=== PATIENT | male | born 1975 | race African-American/Black ===

== ENCOUNTER 2017-12-29 11:24 | Emergency (ER) | payer OTHER ==
[~2017-12-29] VITALS: Ht 180.3 cm; Wt 81.6 kg
[2017-12-29 15:22] VITALS: BP 174/83
[2017-12-29 15:34] LABS: ABSOLUTE BASOPHIL COUNT 0 /CUMM (0.0-0.2); ABSOLUTE EOSINOPHIL COUNT 0.5 /CUMM (0.0-0.7); ABSOLUTE GRANULOCYTE CT 2.6 /CUMM (1.4-6.5); ABSOLUTE LYMPH COUNT 2.5 /CUMM (1.2-3.4); ABSOLUTE MONOCYTE COUNT 0.6 /CUMM (0.10-0.60); BASOPHIL % 0.7 % (0.0-2.0); EOSINOPHIL % 8.2 % (0-5); GRANULOCYTE % 41.6 % (42.2-75.2); HEMATOCRIT 44.5 % (42-52); MEAN CORPUSCULAR HGB 26.9 PG (27.0-31.0); MEAN CORPUSCULAR HGB CONC 32.9 G/DL (33.0-37.0); MEAN CORPUSCULAR VOLUME 81.7 FL (80.0-94.0); MEAN PLATELET VOLUME 8.3 FL (7.4-10.4); PLATELET COUNT 257 /CUMM (130-400); RBC DISTRIBUTION WIDTH 14.1 % (11.5-14.5); RED BLOOD CELL CT 5.45 /CUMM (4.70-6.10); WHITE BLOOD CELL COUNT 6.2 /CUMM (4.8-10.8)
--- NOTE | 2017-12-29 17:18 | CT SCAN REPORT ---
EXAMINATION: CT ABDOMEN AND PELVIS WITHOUT CONTRAST CLINICAL INFORMATION: Bilateral lower back pain radiating to the flanks and groin COMPARISON: None TECHNIQUE: Multidetector volumetric imaging was performed from the superior aspect of the liver through the pubic symphysis. Sagittal and coronal reformatted images were obtained on the technologist's workstation. DLP: 282 mGy-cm FINDINGS: LUNG BASES: The visualized lung bases are unremarkable. LIVER, GALLBLADDER, AND BILIARY TREE: The liver is normal in size, shape, and attenuation. No focal hepatic lesion or biliary ductal dilatation is present. The gallbladder is unremarkable with no evidence of radiopaque gallstones, gallbladder wall thickening, or obvious pericholecystic inflammatory changes. PANCREAS: Unremarkable. SPLEEN: Unremarkable. ADRENAL GLANDS: Unremarkable. KIDNEYS AND URETERS: The kidneys are normal in size, shape, and attenuation. No hydronephrosis, hydroureter, or calculi seen. No perinephric stranding. BLADDER: Unremarkable. GASTROINTESTINAL TRACT: The stomach is unremarkable. The small bowel is normal in caliber. No obstruction. No colonic wall thickening or inflammatory change. Normal appendix. No free air or free fluid. ABDOMINAL WALL: No significant hernia is appreciated. LYMPH NODES: Normal. VASCULAR: Unremarkable. PELVIC VISCERA: The prostate and seminal vesicles are unremarkable. Phleboliths present in the pelvis. OSSEOUS STRUCTURES: No acute or suspicious osseous abnormality. Mild degenerative changes of the lumbar spine with multilevel small endplate osteophytes present. IMPRESSION: No acute findings of the abdomen or pelvis. No hydronephrosis or nephrolithiasis. No inflammatory changes. Mild degenerative changes of the lumbar spine.
--- NOTE | 2017-12-29 17:24 | ED GI/GU/ABDOMINAL COMPLAINT ---
History of Present Illness General Chief Complaint: Low Back Pain/Injury Stated Complaint: LOWER BACK PAIN,RADIATING TO ABDOMINAL/GROIN AREA Source: patient Exam Limitations: no limitations Vital Signs & Intake/Output Vital Signs & Intake/Output Vital Signs Date Time Temp Pulse Resp B/P B/P Pulse O2 O2 Flow FiO2 Mean Ox Delivery Rate 12/29 1522 99.1 68 16 174/83 99 Room Air 12/29 1142 96.2 78 16 98 Room Air Allergies Coded Allergies: No Known Allergies (12/29/17) Reconcile Medications Ibuprofen 800 MG TABLET 1 TAB PO TID PRN PAIN Triage Note: PT TO ED FOR LOW BACK PAIN AND BILATERAL GROIN PAIN WITH INTERMITTENT SHARP PAIN TO R GROIN. PT DENIES FEVERS/HEMATURIA. PT REPORTS "WHITE STRINGS IN URINE SINCE OCTOBER...LONG WHITE STRINGS" PT ALSO REPORTS HE HAS NOT URINATED SINCE WAKING UP THIS AM AT 0800. REPORTS HAVING URGE TO URINATE, BUT CANNOT DO SO. MANUAL BP 172/122 IN TRIAGE, REPORTS 5/10 PAIN. Triage Nurses Notes Reviewed? yes Onset: Gradual Duration: week(s): (2 MONTHS ), changing over time, continues in ED Timing: recent history Quality/Severity: cramping Severity Numbers: 5 Location: BACK Radiation: groin Activities at Onset: none Prior Abdominal Problems: similar symptoms Sexually Active: Yes No Modifying Factors: none Modifying Factors: Worsens With: movement, palpation. HPI: 42-year-old male with no past medical history presents for evaluation of low back pain radiates to the groin and "white strings". In his urine. He states this is going on for several months now intermittently. He HAs been evaluated multiple times and has been treated for STDs without much improvement. He d enies any dysuria frequency or urgency. He does report that he is urinating less than usual. He is sexually active but denies a history of STDs. No abdominal pain. This pain is worse with movement. He has not taken any medicine for the pain. There is no trauma no numbness no tingling no bowel or bladder dysfunction. Past History Travel History Traveled to [place] past 21 day No Medical History Any Pertinent Medical History? see below for history Neurological: NONE EENT: NONE Cardiovascular: hypertension Respiratory: NONE Gastrointestinal: NONE Hepatic: NONE Renal: NONE Musculoskeletal: NONE Psychiatric: NONE Endocrine: NONE Surgical History Surgical History: non-contributory Psychosocial History What is your primary language Tajik Tobacco Use: Current Not Daily Daily Tobacco Use Amount/Type: => 5 Cigarettes daily Family History Hx Contributory? No Review of Systems Review of Systems Constitutional: Reports: no symptoms. EENTM: Reports: no symptoms. Respiratory: Reports: no symptoms. Cardiovascular: Reports: no symptoms. GI: Reports: no symptoms. Genitourinary: Reports: see HPI, discharge. Musculoskeletal: Reports: see HPI, back pain. Skin: Reports: no symptoms. Neurological/Psychological: Reports: no symptoms. Hematologic/Endocrine: Reports: no symptoms. Immunologic/Allergic: Reports: no symptoms. All Other Systems: Reviewed and Negative Physical Exam Physical Exam General Appearance: well developed/nourished, no apparent distress, alert, awake Head: atraumatic, normal appearance Eyes: Bilateral: normal appearance, PERRL, EOMI. Ears, Nose, Throat, Mouth: hearing grossly normal, moist mucous membrane Neck: normal inspection, supple, full range of motion Respiratory: normal breath sounds, chest non-tender, no respiratory distress, lungs clear Cardiovascular: regular rate/rhythm, normal peripheral pulses Peripheral Pulses: 2+ radial (R), 2+ radial (L) Gastrointestinal: soft, non-tender Male Genitals: normal genitalia Back: normal inspection, normal range of motion, LUMBAR PARASPINOUS MUSCLES TENDER TO PALPATION BILATERALLY. nO STEP-OFFS OR DEFORMITIES NO MIDLINE PAIN Extremities: normal range of motion Neurologic/Psych: no motor/sensory deficits, awake, alert, oriented x 3, normal gait Skin: intact, normal color, warm/dry Core Measures ACS in differential dx? No Sepsis Present: No Sepsis Focused Exam Completed? No Progress Differential Diagnosis: AMI, appendicitis, biliary colic, bowel obstruction, cholecystitis, diverticulitis, gastritis, hepatitis, pancreatitis, peptic ulcer, PUD/GERD, pyelonephritis, testicular torsion, ureterolithiasis, urinary retention, UTI/pyelo Plan of Care: Orders Procedure Date/time Status Add-on Test (ER Only) 12/29 1625 Active COMPREHENSIVE METABOLIC PANEL 12/29 1518 Complete CBC WITHOUT DIFFERENTIAL 12/29 1518 Complete CHLAMYDIA-GC DNA PROBE 12/29 1236 Active URINALYSIS 12/29 1147 Complete Current Medications Sig/Bev Start time Last Medication Dose Stop Time Status Admin Azithromycin 1,000 MG ONCE ONE 12/29 1730 AC (Zithromax) 12/29 1730 Ceftriaxone Sodium 250 MG ONCE ONE 12/29 1729 AC (Rocephin) 12/29 1730 Lidocaine 20 ML ONCE ONE 12/29 1729 AC (Lidocaine 1%) 12/29 1730 Laboratory Tests 12/29/17 1524: Anion Gap 12, Estimated GFR > 60, BUN/Creatinine Ratio 9.0, Glucose 111 H, Calcium 9.7, Total Bilirubin 0.7, AST 16 L, ALT 29, Alkaline Phosphatase 70, Total Protein 7.6, Albumin 4.4, Globulin 3.2, Albumin/Globulin Ratio 1.4, CBC w Diff NO MAN DIFF REQ, RBC 5.45, MCV 81.7, MCH 26.9 L, MCHC 32.9 L, RDW 14.1, MPV 8.3, Gran % 41.6 L, Lymphocytes % 39.9, Monocytes % 9.6 H, Eosinophils % 8.2 H, Basophils % 0.7, Absolute Granulocytes 2.6, Absolute Lymphocytes 2.5, Absolute Monocytes 0.6, Absolute Eosinophils 0.5, Absolute Basophils 0 12/29/17 1236: Urine Color YEL, Urine Clarity CLEAR, Urine pH 6.5, Ur Specific [place] 1.025, Urine Protein NEG, Urine Ketones NEG, Urine Nitrite NEG, Urine Bilirubin NEG, Urine Urobilinogen 0.2, Ur Leukocyte Esterase NEG, Ur Microscopic EXAM NOT REQUIRED, Urine Hemoglobin NEG, Urine Glucose NEG Microbiology 12/30 1235 URINE ROUT: GC DNA Probe - RECD 12/30 1235 URINE ROUT: Chlamydia DNA Probe ([facility]) - RECD Patient seen and evaluated. He is having low back pain and possibly penile discharge. This been going on for several months. There is no trauma. A CT scan of the abdomen and pelvis was obtained along with basic blood work and there is no acute findings. Patient will also be treated for gonorrhea and chlamydia. Patient received Toradol is feeling much better. He was also treated for chlamydia and gonorrhea. Clear. Discussed STD precautions. Use condoms. Tylenol ibuprofen as needed. Follow-up with urology and primary care doctor. Discussed return precautions patient agrees the plan Diagnostic Imaging: Viewed by Me: CT Scan. Discussed w/RAD: CT Scan. Radiology Impression: PATIENT: BRAYAN CANDELARIO PRESENT AGE: 42 PATIENT ACCOUNT NO: [id number] : 75 LOCATION: [facility] ORDERING PHYSICIAN: Randall DOHERTY SERVICE DATE: 12/29/17 EXAM TYPE: CAT - CT ABD & PELVIS W/O IV CONTRAS EXAMINATION: CT ABDOMEN AND PELVIS WITHOUT CONTRAST CLINICAL INFORMATION: Bilateral lower back pain radiating to the flanks and groin COMPARISON: None TECHNIQUE: Multidetector volumetric imaging was performed from the superior aspect of the liver through the pubic symphysis. Sagittal and coronal reformatted images were obtained on the technologist's workstation. DLP: 282 mGy-cm FINDINGS: LUNG BASES: The visualized lung bases are unremarkable. LIVER, GALLBLADDER, AND BILIARY TREE: The liver is normal in size, shape, and attenuation. No focal hepatic lesion or biliary ductal dilatation is present. The gallbladder is unremarkable with no evidence of radiopaque gallstones, gallbladder wall thickening, or obvious pericholecystic inflammatory changes. PANCREAS: Unremarkable. SPLEEN: Unremarkable. ADRENAL GLANDS: Unremarkable. KIDNEYS AND URETERS: The kidneys are normal in size, shape, and attenuation. No hydronephrosis, hydroureter, or calculi seen. No perinephric stranding. BLADDER: Unremarkable. GASTROINTESTINAL TRACT: The stomach is unremarkable. The small bowel is normal in caliber. No obstruction. No colonic wall thickening or inflammatory change. Normal appendix. No free air or free fluid. ABDOMINAL WALL: No significant hernia is appreciated. LYMPH NODES: Normal. VASCULAR: Unremarkable. PELVIC VISCERA: The prostate and seminal vesicles are unremarkable. Phleboliths present in the pelvis. OSSEOUS STRUCTURES : No acute or suspicious osseous abnormality. Mild degenerative changes of the lumbar spine with multilevel small endplate osteophytes present. IMPRESSION: No acute findings of the abdomen or pelvis. No hydronephrosis or nephrolithiasis. No inflammatory changes. Mild degenerative changes of the lumbar spine. DICTATED BY: Jonel CHAN,Gurinder DATE/TIME DICTATED:12/29/171709 PREMIX OPERATOR CONCENTRATE: ALEXANDRA DATE/TIME TRANSCRIBED:12/29/171709 CONFIDENTIAL, DO NOT COPY WITHOUT APPROPRIATE AUTHORIZATION. <Electronically signed in Other Vendor System> Initial ED EKG: none Departure Departure Disposition: HOME OR SELF CARE Condition: Stable Clinical Impression Primary Impression: Low back pain Qualifiers: Chronicity: acute Back pain laterality: bilateral Sciatica presence : without sciatica Qualified Code: M54.5 - Low back pain Secondary Impressions: Urethritis Referrals: Patient Has No Primary Care Dr (PCP/Family) Brandon Roberts MD Additional Instructions: Rest and drink plenty of fluids. Avoid excessive heavy lifting bending or physical activity. Use ibuprofen 800 mg every 8 hours with food as needed for pain. Make a follow-up with provided urologist. Monitor symptoms return with any concerns. Departure Forms: Customer Survey General Discharge Information Prescriptions: Current Visit Scripts Ibuprofen 1 TAB PO TID PRN PAIN #30 TAB
[2017-12-29] MEDS ORDERED: IBUPROFEN800 M1 PO (17:29)
== END 2017-12-29 18:03 ==
LOC: ERH 11:24
PROVIDERS: Emergency Medicine
DX: M54.5 Low back pain (principal); N34.2 Other urethritis
CPT/HCPCS: 74176; 81003; 87491; 87591; 96372; J0696; J1885